=== PATIENT | male | born 1980 | race Caucasian/White ===

== ENCOUNTER 2021-10-01 15:23 | Emergency (ER) | payer SELFPAY ==
[2021-10-01] MEDS ORDERED: Ketorolac Tromethamine 30 MG/ML VIAL ONE (16:05)
[2021-10-01] MEDS ORDERED: Ketorolac Tromethamine 60 MG/2 ML VIAL ONE (16:06)
== END 2021-10-01 16:20 | disposition home or self-care (01) ==
LOC: NAV ERS 15:23
DX: M19.90 Unspecified osteoarthritis, unspecified site (principal); M77.12 Lateral epicondylitis, left elbow; M77.11 Lateral epicondylitis, right elbow; F17.210 Nicotine dependence, cigarettes, uncomplicated; Z79.899 Other long term (current) drug therapy
CPT/HCPCS: 96372; 99283; J1885